=== PATIENT | female | born 1980 | race Caucasian/White ===

== ENCOUNTER 2017-02-28 11:42 | Emergency (ER) | payer BC, OTHER ==
[~2017-02-28] VITALS: Ht 162.6 cm; Wt 72.6 kg
[~2017-02-28 11:42] MED LIST: CLIN150C14 PO; DULO60CA6 PO; LISI-338 PO; OMEP40CA5 PO
[2017-02-28] MEDS ORDERED: ACETAMINOPHEN 500 MG TABLET PO ONE (12:30)
--- NOTE | 2017-02-28 12:33 | PHYS DOC ---
Past Medical History Past Medical History: Anxiety, GERD, Hypertension, Other Additional Past Medical Histor: panic attacks, "FATTY LIVER DISEASE" Past Surgical History: Cholecystectomy, Other Additional Past Surgical Histo: sinus surgery Alcohol Use: Rarely Drug Use: None Adult General Chief Complaint Chief Complaint: BACK PAIN - NO INJURY HPI HPI Patient is a 36 year old female who presents with acute onset 8:30 AM left flank pain some nausea no vomiting; pain is worse with movement and deep breathing. Patient has a remote history of kidney stones requiring no intervention. Denies any leg pain or swelling or prior history of DVTs or pulmonary embolism. Denies recent hematuria or trauma. Review of Systems Review of Systems Constitutional: Denies fever or chills [] Eyes: Denies change in visual acuity, redness, or eye pain [] HENT: Denies nasal congestion or sore throat [] Respiratory: Denies cough or shortness of breath [] Cardiovascular: No additional information not addressed in HPI [] GI: Denies abdominal pain, nausea, vomiting, bloody stools or diarrhea [] : Denies dysuria or hematuria [] Musculoskeletal: Denies back pain or joint pain [] Integument: Denies rash or skin lesions [] Neurologic: Denies headache, focal weakness or sensory changes [] Endocrine: Denies polyuria or polydipsia [] All other systems were reviewed and found to be within normal limits, except as documented in this note. Current Medications Current Medications Current Medications Medications (Trade) Dose Ordered Sig/[facility] Start Time Stop Time Status Last Admin Dose Admin Acetaminophen (Tylenol) 1,000 mg 1X ONCE 02/28/17 12:30 02/28/17 12:31 DC 02/28/17 12:40 1,000 MG Allergies Allergies Allergies Coded Allergies Type Severity Reaction Last Updated Verified hydrocodone bitartrate Adverse Reaction Mild "I can't pee" 02/28/17 Yes ibuprofen Adverse Reaction Mild "I can't pee" 02/28/17 Yes tramadol Adverse Reaction Mild "I can't pee" 02/28/17 Yes Physical Exam Physical Exam Constitutional: Well developed, well nourished, no acute distress, non-toxic appearance. [] HENT: Normocephalic, atraumatic, bilateral external ears normal, oropharynx moist, no oral exudates, nose normal. [] Eyes: PERRLA, EOMI, conjunctiva normal, no discharge. [] Neck: Normal range of motion, no tenderness, supple, no stridor. [] Cardiovascular:Heart rate regular rhythm, no murmur [] Lungs & Thorax: Bilateral breath sounds clear to auscultation [] Abdomen: Bowel sounds normal, soft, no tenderness, no masses, no pulsatile masses. [] Skin: Warm, dry, no erythema, no rash. [] Back: tenderness left lower posterior and lateral ribs area tender to palpation particularly with movement and turning, no CVA tenderness. [] Extremities: No tenderness, no cyanosis, no clubbing, ROM intact, no edema. [] Neurologic: Alert and oriented X 3, normal motor function, normal sensory function, no focal deficits noted. [] Psychologic: Affect normal, judgement normal, mood normal. [] Current Patient Data Vital Signs Vital Signs Date Time Temp Pulse Resp B/P (MAP) Pulse Ox O2 Delivery O2 Flow Rate FiO2 02/28/17 14:23 105 16 132/93 (106) Room Air 02/28/17 13:30 99 02/28/17 11:50 97.6 97.6 Lab Values Laboratory Tests Test 02/28/17 11:50 02/28/17 12:30 02/28/17 12:51 Urine Collection Type Unknown Urine Color Yellow Urine Clarity Hazy Urine pH 8.0 Urine Specific Mears 1.010 Urine Protein Negative mg/dL (NEG-TRACE) Urine Glucose (UA) Negative mg/dL (NEG) Urine Ketones (Stick) Negative mg/dL (NEG) Urine Blood Negative (NEG) Urine Nitrite Negative (NEG) Urine Bilirubin Negative (NEG) Urine Urobilinogen Dipstick 1.0 mg/dL (0.2 mg/dL) Urine Leukocyte Esterase Negative (NEG) Urine RBC Occ /HPF (0-2) Urine WBC 1-4 /HPF (0-4) Urine Squamous Epithelial Cells Mod /LPF Urine Bacteria Moderate /HPF (0-FEW) POC Urine HCG, Qualitative Hcg negative (Negative) D-Dimer (Kayleigh) 0.29 ug/mlFEU (0.00-0.50) EKG EKG [] Radiology/Procedures Radiology/Procedures Chest x-ray[] no acute cardiopulmonary process seen my review interpretation Course & Med Decision Making Course & Med Decision Making Pertinent Labs and Imaging studies reviewed. (See chart for details) Seems most consistent with the pleuritic or pleurisy or musculoskeletal back pain as it is definitely worse with movement and breathing. 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 D-dimer negative.] Dragon Disclaimer Dragon Disclaimer This electronic medical record was generated, in whole or in part, using a voice recognition dictation system. Departure Departure Impression: Primary Impression: Acute back pain Disposition: 01 HOME, SELF-CARE Condition: STABLE Referrals: MILI TINAJERO DO (PCP) Patient Instructions: Back Pain, Adult DELORIS MORILLO MD Feb 28, 2017 12:33
[2017-02-28 12:43] LABS: BILIRUBIN,URINE NEGATIVE (NEG); GLUCOSE,URINE NEGATIVE (NEG); NITRITE,URINE NEGATIVE (NEG); PROTEIN,URINE NEGATIVE (NEG-TRACE)
[2017-02-28 12:50] LABS: BACTERIA,URINE MODERATE /HPF (0-FEW); RBC,URINE OCC /HPF (0-2); SQUAMOUS EPITHELIAL CELL,UR MOD /LPF
--- NOTE | 2017-02-28 13:59 | RAD ---
Chest, 2 views, 02/28/2017: History: Left-sided back and flank pain The heart size and pulmonary vascularity are normal. No pulmonary infiltrates are seen. There is no evidence of pleural fluid. IMPRESSION: No acute cardiopulmonary abnormality is detected.
[2017-02-28 14:23] VITALS: BP 132/93
== END 2017-02-28 14:23 | disposition home or self-care (01) ==
LOC: ER 11:42
DX: M54.89 Other dorsalgia (principal); R10.9 Unspecified abdominal pain; R07.81 Pleurodynia; F41.9 Anxiety disorder, unspecified; I10 Essential (primary) hypertension; K21.9 Gastro-esophageal reflux disease without esophagitis; Z87.442 Personal history of urinary calculi; Z90.49 Acquired absence of other specified parts of digestive tract; Z88.6 Allergy status to analgesic agent; Z88.8 Allergy status to other drugs, medicaments and biological substances
CPT/HCPCS: 36415; 71020; 81001; 81025; 85379; 87086; 99285-25

== ENCOUNTER → 2018-10-30 | Outpatient (CLI) | payer OTHER ==
--- NOTE | 2018-10-30 11:06 | CARD ---
MR#: [id number] Date of Study: 10/30/2018 Ordering Physician: MAINE LOUIS, Referring Physician: MAINE LOUIS, Tech: Maria Elena Amador APPROVED REPORT EXAM: Two-dimensional and M-mode echocardiogram with Doppler and color Doppler. Other Information Quality : AverageHR: 68bpm INDICATION Hypertension/HCVD RISK FACTORS Hypertension Previous smoker 2D DIMENSIONS RVDd2.6 (2.9-3.5cm)Left Atrium(2D)3.1 (1.6-4.0cm) IVSd0.9 (0.7-1.1cm)Aortic Root(2D)2.8 (2.0-3.7cm) LVDd5.0 (3.9-5.9cm)LVOT Diameter2.0 (1.8-2.4cm) PWd1.0 (0.7-1.1cm)LVDs3.1 (2.5-4.0cm) FS (%) 38.0 %SV81.4 ml LVEF(%)67.9 (>50%) Aortic Valve AoV Peak Fidel.132.0cm/sAoV VTI27.9cm AO Peak GR.7.0mmHgLVOT Peak Fidel.107.2cm/s AO Mean GR.4mmHgAVA (VMAX)2.44cm2 Mitral Valve MV E Nmpjquxt86.9cm/sMV DECEL [id number] MV A Hkinazfc70.7cm/sE/A Ratio0.9 Pulmonary Valve PV Peak Amhyqqoq06.7cm/s Tricuspid Valve TR P. Caqffdxb397nd/sRAP [id number] TR Peak Gr.42mkZfOTJM54mwUs Pulmonary Vein S1 Qzhwotcv84.7cm/sD2 Ydctsfxw85.1cm/s PVa [id number] LEFT VENTRICLE The left ventricle is normal size. There is normal left ventricular wall thickness. The left ventricu lar systolic function is normal. The Ejection Fraction is 55-60%. There is normal LV segmental wall m otion. The left ventricular diastolic function and filling is normal for age. RIGHT VENTRICLE The right ventricle is borderline dilated. There is normal right ventricular wall thickness. The righ t ventricular systolic function is normal. ATRIA The left atrium size is normal. The right atrium size is normal. The interatrial septum is intact wit h no evidence for an atrial septal defect or patent foramen ovale as noted on 2-D or Doppler imaging. AORTIC VALVE The aortic valve is normal in structure and function. Doppler and Color Flow revealed no significant aortic regurgitation. There is no significant aortic valvular stenosis. MITRAL VALVE The mitral valve is normal in structure and function. There is no evidence of mitral valve prolapse. There is no mitral valve stenosis. Doppler and Color-flow revealed trace mitral regurgitation. TRICUSPID VALVE The tricuspid valve is normal in structure and function. Doppler and Color Flow revealed trace tricus pid regurgitation with an estimated PAP of 22 mmHg. There is no tricuspid valve prolapse or vegetatio n. There is no tricuspid valve stenosis. PULMONIC VALVE The pulmonary valve is normal in structure and function. Doppler and Color Flow revealed trace pulmon ic valvular regurgitation. GREAT VESSELS The aortic root is normal in size. The IVC is normal in size and collapses >50% with inspiration. PERICARDIAL EFFUSION There is no evidence of significant pericardial effusion. Critical Notification Critical Value: No <Conclusion> The left ventricular systolic function is normal. The Ejection Fraction is 55-60%. There is normal LV segmental wall motion. Trace mitral regurgitation. Trace tricuspid regurgitation with an estimated PAP of 22 mmHg. There is no evidence of significant pericardial effusion. Signed by : Maine Louis, Electronically Approved : 10/30/2018 11:06:15
--- NOTE | 2018-10-30 11:34 | RAD ---
US RENAL DUPLEX: 10/30/2018 11:00 AM Indication: 37 years old Female. Hypertension. Comparison: None. FINDINGS: Sonographic evaluation of the kidneys is performed with grayscale, color Doppler and spectral waveform analysis. Right kidney: Size: 11.6 x 4.6 x 5.7cm. Collecting System: No hydronephrosis. No renal calculi detected. Parenchyma: Normal echotexture and morphology. No focal contour deforming renal mass. Renal artery: Proximal: Obscured Middle: 162 cm/s with resistive index of 0.69 Distal: 104 cm/s with resistive index of 0.62 Left kidney: Size: 12.6 x 4.1 x 5.0cm. Collecting System: No hydronephrosis. No renal calculi detected. Parenchyma: Normal echotexture and morphology. No focal contour deforming renal mass. Renal artery: Proximal: Obscured Middle: 165 cm/s with resistive index 0.65 Distal: 123 cm/s with resistive index 0.65 Urinary bladder: Unremarkable. Aorta: 160 cm/s. Right renal artery to aorta ratio: 1.5 Left renal artery to aorta ratio: 1.56 IMPRESSION: No sonographic evidence for obstructive uropathy. No sonographic evidence for renal artery stenosis with normal renal artery velocities, resistive indices and renal artery/aorta ratios. Electronically signed by: Marian Ndiaye MD (10/30/2018 11:32 AM) [id number]
== END | disposition home or self-care (01) ==
LOC: ECHO 09:44
PROVIDERS: ATTEND Internal Medicine Cardiovascular Disease
DX: I10 Essential (primary) hypertension (principal)
CPT/HCPCS: 93306; 93975

== ENCOUNTER → 2019-10-13 | Outpatient (CLI) | payer MEDICAID ==
[~2019-10-13] MED LIST changes: +OMEP40CA45 PO; -OMEP40CA5 PO
--- NOTE | 2019-10-13 15:25 | RAD ---
Examination: HAND BILAT 3V History: Reason: POLYARTHRALGIA / Spl. Instructions: / History: Comparison/Correlation: None Findings: 3 images of the right hand in 3 images of the left hand were obtained. Osteopenia noted. Joint spaces are unremarkable. No degenerative changes. No acute fracture or bone destruction. Soft tissues are unremarkable no fracture or bone destruction. Impression: Osteopenia. No suspicious process. Electronically signed by: Rafael Correia MD (10/13/2019 3:22 PM) [id number]
[2019-10-15 18:09] LABS: ANA INTERP Negative (.)
[2019-10-16 00:08] LABS: CYCLIC CITRULLIN PEP AB 5 units (0-19)
== END | disposition home or self-care (01) ==
LOC: LAB 14:07
PROVIDERS: ATTEND Internal Medicine Rheumatology
DX: M85.841 Other specified disorders of bone density and structure, right hand (principal); M85.842 Other specified disorders of bone density and structure, left hand
CPT/HCPCS: 36415; 73130; 86038; 86140; 86200

== ENCOUNTER → 2019-12-18 | Outpatient (CLI) | payer MEDICAID ==
--- NOTE | 2019-12-18 11:48 | KCIC ---
EXAMINATION: ELBOW LEFT 3V CLINICAL HISTORY: MEDIAL LEFT ELBOW PAIN 4 MONTHS, NO KNOWN INJURY TECHNIQUE: ELBOW LEFT 3V Number of images/views: 3 COMPARISON: None FINDINGS: Joint spaces and alignment maintained. No acute fracture. No significant joint effusion. IMPRESSION: No acute osseous abnormality. Electronically signed by: Jose Cross DO (12/18/2019 11:45 AM) [id number]
== END | disposition home or self-care (01) ==
LOC: KCIC 10:48
PROVIDERS: ATTEND Nurse Practitioner Family
DX: M25.522 Pain in left elbow (principal)
CPT/HCPCS: 73080

== ENCOUNTER → 2020-03-02 | Outpatient (CLI) | payer MEDICAID ==
--- NOTE | 2020-03-02 14:40 | KCIC ---
CHEST PA LATERAL INDICATION: Reason: Cough, nonproductive for 1 month, has been on meds, hx. asthma. / Spl. Instructions: / History: . COMPARISON STUDY: 02/28/2017. FINDINGS: Lungs: Normal lung volume. No pulmonary mass or consolidation. The tracheobronchial tree and hilar structures are normal. Pleura: No pleural effusion or pneumothorax. Heart and Mediastinum: The cardiomediastinal silhouette is normal. The great vessels of the thorax are normal. Bones and Soft Tissues: The bones and soft tissues are within normal limits. IMPRESSION: No acute cardiopulmonary process. Electronically signed by: Be Mon MD (03/02/2020 2:37 PM) [id number]
== END ==
LOC: KCIC 10:00
PROVIDERS: ATTEND Nurse Practitioner Family
DX: R05 Cough (principal); Z82.5 Family history of asthma and other chronic lower respiratory diseases
CPT/HCPCS: 71046

== ENCOUNTER → 2021-07-22 | Outpatient (CLI) | payer MEDICAID ==
[~2021-07-22] MED LIST changes: -CLIN150C14 PO; +CLIN150C16 PO; -DULO60CA6 PO; +DULO60CA7 PO; -LISI-338 PO; +LISI5TAB15 PO; -OMEP40CA45 PO; +OMEP40CA7 PO
--- NOTE | 2021-07-22 10:26 | RAD ---
Complete abdominal ultrasound 07/22/2021 9:57 AM Clinical History: Elevated liver enzymes Technique: Ultrasound examination of the abdomen was performed, and multiple static images were subm itted for review. Comparison: Abdominal ultrasound October 27, 2014 Findings: The visualized portions of the pancreas are within normal limits. The visualized aorta and IVC are un remarkable. Prior cholecystectomy noted. The common bile duct measures 6 mm in diameter which is within expected limits given prior cholecyst ectomy. The liver measures the 16 cm longitudinally. There is diffuse increase in hepatic echogenicity which most commonly reflects hepatic steatosis. No intrahepatic biliary ductal dilatation is seen. No foca l hepatic lesions are identified. The spleen is normal in appearance measuring 10.8 cm. The bilateral kidneys are normal in appearance without evidence of obstructive uropathy, nephrolithia sis, or focal renal lesion. Right kidney measures 11.0 cm in length. Left kidney measures 13 cm in le ngth. Impression: 1. Prior cholecystectomy 2. Probable hepatic steatosis 3. Otherwise unremarkable sonographic appearance of the abdomen Electronically signed by: Krystian Ramirez MD (07/22/2021 10:24 AM) [id number]
== END ==
LOC: US 09:48
PROVIDERS: ATTEND Nurse Practitioner Family
DX: R74.8 Abnormal levels of other serum enzymes (principal); Z90.49 Acquired absence of other specified parts of digestive tract
CPT/HCPCS: 76700